=== PATIENT | female | born 1965 | race Caucasian/White ===

== ENCOUNTER 2024-10-31 23:10 | Inpatient (IN) | payer BC, SELFPAY ==
[2024-10-31 20:52] VITALS: BP 182/107
[2024-10-31 21:05] LABS: % Basophils 0.5 % (0-2); % Eosinophils 1.8 % (0-6); % Immature Granulocytes 0.4 % (0-0.5); % Lymphocytes 27.7 % (20.5-51.1); % Monocytes 6.2 % (1.7-9.3); % Neutrophils 63.4 % (42.2-75.2); Absolute Eosinophils 0.1 10^3/uL (0-0.7); Absolute Monocytes 0.5 10^3/uL (0.1-0.6); Absolute Neutrophils 4.6 10^3/uL (1.4-6.5); Hematocrit 40.2 % (37.0-47.0); Hemoglobin 12.9 g/dL (12.0-16.0); Mean Corp Hgb Conc. 32.1 g/dL (33.0-37.0); Mean Corpuscular Hgb 27.7 pg (27.0-31.0); Mean Corpuscular Volume 86.3 fL (81.0-99.0); Mean Platelet Volume 9.5 fL (7.4-10.4); Nucleated Red Blood Cells % 0 %; Platelet Count 313 10^3/uL (130-400); Red Blood Cell Count 4.66 10^6/uL (4.20-5.40); Red Cell Dist. Width 13.5 % (11.5-14.5); White Blood Cell Count 7.3 10^3/uL (4.8-10.8)
[2024-10-31 21:29] LABS: Blood Urea Nitrogen 25 mg/dl (7-17); Glucose 113 mg/dl (70-99)
[2024-10-31 21:30] LABS: ALT (SGPT) 79 U/L (0-35); AST (SGOT) 121 U/L (14-36); Albumin 4.6 g/dl (3.5-5.0); Alkaline Phosphatase 108 U/L (38-126); Calcium 9.8 mg/dl (8.4-10.2); Carbon Dioxide 29 mmol/L (22-30); Chloride 102 mmol/L (98-107); Potassium 4.1 mmol/L (3.5-5.1); Sodium 138 mmol/L (135-145); Total Bilirubin 0.6 mg/dl (0.2-1.3); Total Protein 7.3 g/dl (6.3-8.2); eGFR > 60.00
[2024-10-31 22:03] LABS: Lipase > 4000 U/L (23-300)
--- NOTE | 2024-10-31 22:15 | ED.GENMED ---
History of Present Illness
<Gayle Luke MD, Resident - Last Filed: 10/31/24 22:33>
General
Chief Complaint: Abdominal Symptoms
Time Seen by Provider: 10/31/24 21:56
History of Present Illness
History of Present Illness:
59-year-old female with no significant past medical history presenting to the ED with abdominal pain since yesterday. Patient notes she had sudden onset pain located in the epigastric region while shopping that lasted about 15-20 mins and subsided
on its own. No associated symptoms. Denies fever, nausea, vomiting. Today, after breakfast the pain started again in the same location and lasted about 15-20 mins without any other symptoms except for luis armando satiety. Tonight, after dinner, she had
pain that lasted about one hour and radiated to her back. Patient notes pain did not change with movement and position changes. Denies melena, urinary symptoms, change in BM, binge drinking. Patient notes has never had abdominal pain before.
Currently in mild pain (01/02). Last colonoscopy in 2014 showed diverticulosis.
Past History
<Gayle Luke MD, Resident - Last Filed: 10/31/24 22:33>
Past History
ED Past Medical History: None
ED Past Surgical History: None
Social History
Alcohol: Occasional
Review of Systems
<Gayle Luke MD, Resident - Last Filed: 10/31/24 22:33>
Review of Systems
Constitutional: Reports no symptoms
EENT: Reports no symptoms
Respiratory: Reports no symptoms
Cardiac: Reports no symptoms
ABD/GI: Reports abdominal pain
: Reports no symptoms
Musculoskeletal: Reports no symptoms
Skin: Reports no symptoms
Neurological: Reports no symptoms
Endocrine: Reports no symptoms
Hematologic/Lymphatic: Reports no symptoms
Psychiatric: Reports no symptoms
Phy Exam
<Gayle Luke MD, Resident - Last Filed: 10/31/24 22:33>
Physical Exam
Physical Exam:
GENERAL: Alert, in no apparent distress.
EYE: pupils equal and reactive
NECK: Supple, no significant adenopathy.
ENT: o/p clr, mmm.
CARDIAC: Regular rate and rhythm.
LUNGS: Clear breath sounds bilaterally, no acute respiratory distress, no wheezes/rales/rhonchi
ABDOMEN: Soft, mild epigastric tenderness, no r/g, no cvat.
NEUROLOGICAL: Alert and oriented, no focal neuro deficits
SKIN: Warm and dry, skin intact.
MUSCULOSKELETAL: No edema, well perfused.
PSYCH: Normal and appropriate interaction.
Course
<Gayle Luke MD, Resident - Last Filed: 10/31/24 22:33>
Orders/Labs/Results
Orders:
Orders
10/31/24 21:00
Complete Blood Count/With Diff Urgent
Comprehensive Metabolic Panel Urgent
Lipase Urgent
10/31/24 22:19
0.9% Sodium Chloride 1000 ml [Nss] 1,000 ml IV BOLUS
10/31/24 22:20
Electrocardiogram (*1) Urgent
Reason for Study: Abdominal Pain
EKG- Treatment ONCE
US Abdomen Complete/Upper Urgent
Comment:
Reason For Exam: pain
10/31/24 22:26
HYDROmorphone [Dilaudid] 0.5 mg IV NOW STA
Ondansetron Injectable [Zofran] 4 mg IV NOW STA
Abnormal Lab Results
10/31/24
21:00
MCHC 32.1 L g/dL
(33.0-37.0)
BUN 25 H mg/dl
(7-17)
Glucose 113 H mg/dl
(70-99)
AST 121 H U/L
(14-36)
ALT 79 H U/L
(0-35)
Lipase > 4000 H* U/L
(23-300)
10/31/24 21:00
10/31/24 21:00
Vital Signs
Initial and Last Documented VS:
Initial Vital Signs
Temp Pulse Resp BP Pulse Ox
98.1 F 91 18 182/107 99
10/31/24 20:52 10/31/24 20:52 10/31/24 20:52 10/31/24 20:52 10/31/24 20:52
Last Documented Vital Signs
Temp Pulse Resp BP Pulse Ox
98.1 F 91 18 182/107 99
10/31/24 20:52 10/31/24 20:52 10/31/24 20:52 10/31/24 20:52 10/31/24 20:52
<hSane Christensen, DO - Last Filed: 10/31/24 22:30>
Orders/Labs/Results
Orders:
Orders
10/31/24 21:00
Complete Blood Count/With Diff Urgent
Comprehensive Metabolic Panel Urgent
Lipase Urgent
10/31/24 22:19
0.9% Sodium Chloride 1000 ml [Nss] 1,000 ml IV BOLUS
10/31/24 22:20
Electrocardiogram (*1) Urgent
Reason for Study: Abdominal Pain
EKG- Treatment ONCE
US Abdomen Complete/Upper Urgent
Comment:
Reason For Exam: pain
10/31/24 22:26
HYDROmorphone [Dilaudid] 0.5 mg IV NOW STA
Ondansetron Injectable [Zofran] 4 mg IV NOW STA
Abnormal Lab Results
10/31/24
21:00
MCHC 32.1 L g/dL
(33.0-37.0)
BUN 25 H mg/dl
(7-17)
Glucose 113 H mg/dl
(70-99)
AST 121 H U/L
(14-36)
ALT 79 H U/L
(0-35)
Lipase > 4000 H* U/L
(23-300)
10/31/24 21:00
10/31/24 21:00
Vital Signs
Initial and Last Documented VS:
Initial Vital Signs
Temp Pulse Resp BP Pulse Ox
98.1 F 91 18 182/107 99
10/31/24 20:52 10/31/24 20:52 10/31/24 20:52 10/31/24 20:52 10/31/24 20:52
Last Documented Vital Signs
Temp Pulse Resp BP Pulse Ox
98.1 F 91 18 182/107 99
10/31/24 20:52 10/31/24 20:52 10/31/24 20:52 10/31/24 20:52 10/31/24 20:52
<Gayle Luke MD, Resident - Last Filed: 10/31/24 22:33>
MDM/Problems Addressed
Differential Diagnosis Includes:
Biliary colic
Cholelithiasis
Pancreatitis
Diverticulosis
ACS
MDM/Problems Addressed:
- CBC, CMP
- Abdomen US
- Pain management
- NPO
<Gayle Luke MD, Resident - Last Filed: 10/31/24 22:33>
*Critical Care Note
Total Time (30-74mins, 75-104mins- exclusive of procedures): Not Applicable
<Shane Christensen DO - Last Filed: 10/31/24 22:30>
Update Note
Update Note:
Update ER attending labs noted 2 episodes of abdominal pain into her back looks like pancreatitis social drinker not to excess none recently perhaps gallstone mediated n.p.o. IV fluids analgesics ultrasound admission
ED Attending Note
<Gayle Luke MD, Resident - Last Filed: 10/31/24 22:33>
-
Portions of this chart may have been created with voice recognition software.� Occasional wrong word or��sound alike� substitutions may have occurred due to the inherent limitations of voice recognition software.
<Shane Christensen DO - Last Filed: 10/31/24 22:30>
ED Attending Note
Patient seen and examined by attending physician: Yes
I performed a history and physical exam of patient and discussed management with resident, I reviewed resident's note and agree with documented findings and plan of care.: Yes
ED Attending Note:
Seen with resident agree with assessment plan 59-year-old female with 2 episodes of abdominal pain yesterday and then today fairly severe into her back some nausea without vomiting social drinker of alcohol very rarely no jaundice, she has had
laparoscopy with infertility treatments no other abdominal surgery, labs are noted keep n.p.o. analgesics, ultrasound admission
Discharge Plan
Interventions
Interventions:
*Risk Screen - Suicide Last Done: 10/31/24 20:52
*General Assessment Last Done: 10/31/24 20:52
*Neglect/Abuse Screening Last Done: 10/31/24 20:52
KM-Itrets-Frafpodbpv Assessment Last Done: 10/31/24 22:08
Discharge Date and Time
Print Language: NEPALI
[2024-10-31] MEDS: NSS 1000 IV (22:35)
[2024-10-31] MEDS: DILAUDID 0.5 MG IV (22:36)
[2024-10-31] MEDS: ZOFRAN 4 MG IV (22:36)
--- NOTE | 2024-10-31 22:40 | HPS.HSE ---
Family Physician
-
Family Physician:
Chief Complaint
-
epigastric abdominal pain
History of Present Illness
59-year-old female with no significant past medical history presenting to the ED with abdominal pain since yesterday. Patient notes she had sudden onset pain located in the epigastric region after eating food. it last for 20 mins and subsided on its
own. today after breakfast, she felt the again and subsided its own. after dinner, she felt the epigastric pain which lasted for one hour and it radiated to her back. denied nausea, vomiting and diarrhea. denied fever,chills, chest pain sob. denied
dysuria or hematuria. on Thursday, she felt some palpitation.
noted to have elevated LFT's, lipase. admitting for further management.
Medical History
Past Medical History
Past Medical History: Reports Other
Past Surgical History: Reports None
Social History
Tobacco: Non-smoker
Alcohol: Occasional
Drug: None
Personal:
Living: With Family
Family History
Family History: Not pertinent
Allergies / Home Medications
Allergies reflects when Allergies were last updated in [facility].
Home Medications with original date entered in [facility]
Allergy/Medication List:
Allergies
Allergy/AdvReac Type Severity Reaction Status Date / Time
No Known Allergies Allergy Unverified 10/31/24 20:56
Review of Systems
-
Constitutional: Reports No Symptoms
EENT: Reports No Symptoms
Respiratory: Reports No Symptoms
Cardiac: Reports No Symptoms
Abdomen/GI: Reports Abdominal Pain
: Reports No Symptoms
Musculoskeletal: Reports No Symptoms
Skin: Reports No Symptoms
Neurological: Reports No Symptoms
Endocrine: Reports No Symptoms
Hematologic/Lymphatic: Reports No Symptoms
Psych: Reports No Symptoms
Physical Exam
Vital Signs
Vital Signs
Temp Pulse Resp BP Pulse Ox
98.1 F 91 18 182/107 99
10/31/24 20:52 10/31/24 20:52 10/31/24 20:52 10/31/24 20:52 10/31/24 20:52
Physical Exam
General: Well Developed, Well Nourished and No Apparent Distress
HEENT: NormoCephalic, Moist mucous membranes and Atraumatic
Respiratory: Clear
Cardiac: S1/S2 and Regular Rhythm; No Murmur or Rub
GI: Soft, Non Tender, Non Distended and Normal Bowel Sounds; No Organomegaly
Rectal: Deferred by Provider
Musculoskeletal: No Clubbing, No Cyanosis and No Edema
Skin: No Rash
Neuro: AO x 3 and Nonfocal/grossly intact
Psych: Calm
Laboratory Results
-
10/31/24 21:00
10/31/24 21:00
Laboratory Results
Total Bilirubin 0.6 mg/dl (0.2-1.3) 10/31/24 21:00
AST 121 U/L (14-36) H 10/31/24 21:00
ALT 79 U/L (0-35) H 10/31/24 21:00
Alkaline Phosphatase 108 U/L (38-126) 10/31/24 21:00
Lipase > 4000 U/L (23-300) H* 10/31/24 21:00
Data Reviewed
-
Lab Data: Labs Reviewed by me
Impression/Plan
-
# Epigastric abdominal pain likely pancreatitis
-AST 121, ALT 79, lipase greater than 4000
-US of abdomen pending, if nonrevealing will obtain CT of abdomen
-fluids continued
-trend LFT's and Lipase in Am
-keep patient NPO
#DVT prophylaxis
-scd
#CODE status
-full code
[2024-10-31 22:42] VITALS: BP 163/71
[2024-10-31 23:00] VITALS: BP 153/72
--- NOTE | 2024-10-31 23:06 | W.PN.UPDATE ---
Update Note
Progress Note Update
Patient seen in conjunction with SHIRLEY. I agree with her findings on history and physical. I agree with the assessment and plan.
Briefly, this is a 59-year-old female with no known segment past medical history presenting to the emergency department with approximately 1 day history of epigastric pain. She reports sudden onset of epigastric pain 1 day ago with a sharp
abdominal sensation that had almost doubled over and associated with episode of diaphoresis and chills. She had no nausea or vomiting. This last for some time and then resolved after she took a nap. The following day she started having
intermittent chest pain with food. She had a sense of fullness and then pain that radiates to the back. She has denied any nausea or vomiting. She denies any fevers or chills. He has no diarrhea.
Patient seen in the ED she was afebrile hemodynamically stable with a blood pressure of 160/70 and satting normal on room air. ECG shows sinus tachycardia. CBC was unremarkable. Chemistries notable only for a lipase of 4000 and slight elevation
in AST and ALT.
Patient denies any alcohol use. She is not on any medication. She denies personal history of gallstones but reports father with gallstones status post cholecystectomy. She has had no prior surgeries.
Assessment and plan
Acute pancreatitis�giving history, risk factors and mild transaminitis suspect transient gallstones with gallstone pancreatitis.
- admit to med/surg
- RUQ u/s to eval gb for stones and biliary dilation, if positive will get mrcp and GI consultation
- trend lfts
- NPO for now except sips
- IV fluids, pain control and antiemetics
DVT PPX - lovenox sq
Code status- Full code
[2024-11-01] MEDS: NSS 1000 IV ×2 (00:28→05:32)
[2024-11-01 01:15] VITALS: BMI 25.0
[2024-11-01 01:18] VITALS: BP 139/73
--- NOTE | 2024-11-01 01:54 | PTCARENOTE ---
Received pt from er alert and oriented ambulated from stretcher to bed without difficulty,pts physical assessment preformed with ease,pt denies pain at this time,afebrile VS stable.IVF initiated at 200 mls hour.Pt sleeping after assessment.
[2024-11-01 07:38] VITALS: BP 114/60
[2024-11-01] MEDS: LR IV ×2 (07:56→14:03)
[2024-11-01] MEDS: PROTONIX IV 40 MG IV (07:58)
[2024-11-01] MEDS: NSS (PRESERVATIVE FREE) 10 ML IV (07:58)
[2024-11-01 08:25] LABS: Hematocrit 34.2 % (37.0-47.0); Hemoglobin 11.2 g/dL (12.0-16.0); Mean Corp Hgb Conc. 32.7 g/dL (33.0-37.0); Mean Corpuscular Hgb 28.6 pg (27.0-31.0); Mean Corpuscular Volume 87.2 fL (81.0-99.0); Mean Platelet Volume 10.4 fL (7.4-10.4); Platelet Count 260 10^3/uL (130-400); Red Blood Cell Count 3.92 10^6/uL (4.20-5.40); White Blood Cell Count 16.2 10^3/uL (4.8-10.8)
[2024-11-01 08:56] LABS: ALT (SGPT) 405 U/L (0-35); AST (SGOT) 479 U/L (14-36); Albumin 3.4 g/dl (3.5-5.0); Alkaline Phosphatase 179 U/L (38-126); Blood Urea Nitrogen 18 mg/dl (7-17); Calcium 8.5 mg/dl (8.4-10.2); Carbon Dioxide 23 mmol/L (22-30); Chloride 107 mmol/L (98-107); Estimated Creatinine Clearance 75 ml/min; Glucose 118 mg/dl (70-99); HDL Cholesterol 76 mg/dl; LDL Cholesterol, Calculated 95 mg/dl; Potassium 3.8 mmol/L (3.5-5.1); Sodium 138 mmol/L (135-145); Total Bilirubin 1.2 mg/dl (0.2-1.3); Total Cholesterol 177 mg/dl (50-199); Total Protein 5.5 g/dl (6.3-8.2); Triglyceride 34 mg/dl (10-149); Very Low Density Lipoprotein 6 mg/dl (0-30); eGFR > 60.00
--- NOTE | 2024-11-01 09:34 | CM ---
Addendum entered by Tari Lilly RN 11/01/24 09:35:
Correction:
Patient uses [facility] for medication services.
Original Note:
CM reviewed medical records. CM met with patient in room. Patient confirmed demographics. Patient lives independently. Patient denies history of VN, SNF or DME. Patient is active with her PCP. Patient uses [facility] for medication services.
PLAN: Home no needs.
[2024-11-01 10:13] LABS: Lipase > 4000 U/L (23-300)
--- NOTE | 2024-11-01 10:18 | W.PN.HOSP.TC ---
Today's Communication/Plan
-
monitor vitals
see plan
cw LR
pain control
check bcx
start empiric abx
NPO
GI to see
MRI
monitor LFT's
Assessment / Plan
Assessment / Plan
General: Well Developed, Well Nourished and No Apparent Distress
HEENT: NormoCephalic, Moist mucous membranes and Atraumatic
Respiratory: Clear
Cardiac: S1/S2 and Regular Rhythm; No Murmur or Rub
GI: Soft, Tender
Musculoskeletal: No Edema
Skin: No Rash
Neuro: AO x 3 and Nonfocal/grossly intact
Psych: Calm
Abdominal pain secondary to pancreatitis likely secondary to gallstones
Ultrasound suggestive of Nicky lithiasis however no evidence of acute cholecystitis. There is dilation of CBD. MRI pending
GI consulted
N.p.o.
Lactated Ringer's
Pain control
Now with leukocytosis and tachycardia, sepsis likely secondary to pancreatitis
Check blood culture, start empiric antibiotics
LFTs worse with elevated alk phos, concern for stone
DVT prophylaxis
-scd
#CODE status
-full code
I spent a total of 52 minutes with the patient or on the floor. More than 50% of this time involved counseling and coordination of care.
Anticipated Discharge: > 48 hours
Subjective/Interval History
-
Date of Service: November 01, 2024
has pain
Objective Data
-
Labs:
Laboratory Results
11/01/24
07:00
WBC 16.2 H
Hgb 11.2 L
Hct 34.2 L
Plt Count 260
Sodium 138
Potassium 3.8
Chloride 107
Carbon Dioxide 23
BUN 18 H
Creatinine 0.8
Glucose 118 H
Calcium 8.5
Total Bilirubin 1.2
AST 479 H
ALT 405 H
Alkaline Phosphatase 179 H
Vital Signs:
Vital Signs
Temp Pulse Resp BP Pulse Ox
99.4 F 102 17 114/60 95
11/01/24 07:38 11/01/24 07:38 11/01/24 07:38 11/01/24 07:38 11/01/24 07:38
[2024-11-01] MEDS: DILAUDID 0.5 MG IV ×2 (10:50→23:49)
[2024-11-01] MEDS: ROCEPHIN 1000 MG IV (12:09)
[2024-11-01] MEDS: LR 1000 IV ×2 (12:10→20:39)
[2024-11-01] MEDS: STERILE WATER FOR INJECTION 10 ML IV (12:10)
[2024-11-01] MEDS: FLAGYL 500 MG 100 IV ×2 (12:10→20:40)
--- NOTE | 2024-11-01 13:31 | CON.GI ---
Consultation
-
Date/Time Consultation Requested: 11/01/2024,05:21
Date/Time Consultation Performed: 11/01/2024,13:30
Requesting Provider: Kemar Lizarraga
Performing Provider: Claudia Vera
Reason for Consultation: Pancreatitis
Medical History
Chief Complaint / HPI
Chief Complaint: Abdominal pain
History of Present Illness:
Patient is a 59-year-old female with past medical history of arthritis for which she takes ewuz-lon-uucqkmi supplements and on occasions uses NSAIDs for pain relief. She was in her usual state of health 2 days ago when she had sudden onset of pain
in the epigastric region that felt like a punch in the abdomen, lasted for about 20 to 25 minutes and then resolved on its own. She felt all right but the next day she had another episode of pain and then after dinner she had severe pain in the
epigastric region radiating to the back and to the right upper quadrant, and was severe and sudden in onset but the patient did not have any vomiting with it.
She denies any chronic autoimmune conditions, smoking, steroid use, uohi-fkf-odiytqk supplement use, heavy alcohol use, and reports normal triglyceride levels by her PCP. She drinks alcohol occasionally.
She denies any recent weight gain or weight loss, chest pain, shortness of breath, palpitations, constipation, diarrhea, indigestion, difficulties with swallowing, insomnia or fever.
The workup done in the emergency and abdominal ultrasound that showed cholelithiasis without evidence of acute cholecystitis, common bile duct was 9.6 mm in diameter, a follow-up MRI with MRCP was done that showed mild peripancreatic edema
consistent with acute pancreatitis, the common bile duct was mildly dilated measuring 1 cm with distal tapering but there was no evidence of choledocholithiasis.
The patient is being managed with conservative measures including pain control, IV fluids, antibiotics, and she is n.p.o. at the moment. The patient reports pain that she is tolerating and is trying to avoid any pain medications.
Past Medical History
Past Medical History: Other (Arthritis)
Past Surgical History: None
Social History
Tobacco: Non-Smoker
Alcohol: Occasional
Drug: None
Personal:
Living: With Family
Family History
Family History: Reviewed & Not Pertinent
Allergies / Home Medications
Allergy/AdvReac Type Severity Reaction Status Date / Time
No Known Allergies Allergy Unverified 10/31/24 20:56
�Medication �Instructions �Recorded
No Meds [No Current Medications] 11/01/24
Review of Systems
-
All other systems: A 12 pt ROS was Negative except as stated above in HPI
Vital Signs
Temp Pulse Resp BP Pulse Ox
99.4 F 102 17 114/60 95
11/01/24 07:38 11/01/24 07:38 11/01/24 07:38 11/01/24 07:38 11/01/24 07:38
Physical Exam
Exam
General: Well Developed and Pain (Appears in mild distress due to pain)
HEENT: Anicteric and Moist Mucous Membranes
Respiratory: Clear and Other (No wheezes rhonchi or rails)
Cardiac: S1/S2 and Regular Rhythm
GI: Soft, Normal Bowel Sounds, Tender (Mildly tender) and Other
Genito-urinary: No Costovertebral Tender
Musculoskeletal: No Clubbing and No Edema
Skin: Warm
Neuro: Awake, Alert and No Motor Deficits
Psych: Calm
Results
WBC 16.2 10^3/uL (4.8-10.8) H 11/01/24 07:00
Hgb 11.2 g/dL (12.0-16.0) L 11/01/24 07:00
Hct 34.2 % (37.0-47.0) L 11/01/24 07:00
MCV 87.2 fL (81.0-99.0) 11/01/24 07:00
Plt Count 260 10^3/uL (130-400) 11/01/24 07:00
Absolute Neuts (auto) 4.6 10^3/uL (1.4-6.5) 10/31/24 21:00
Sodium 138 mmol/L (135-145) 11/01/24 07:00
Potassium 3.8 mmol/L (3.5-5.1) 11/01/24 07:00
Chloride 107 mmol/L (98-107) 11/01/24 07:00
Carbon Dioxide 23 mmol/L (22-30) 11/01/24 07:00
BUN 18 mg/dl (7-17) H 11/01/24 07:00
Creatinine 0.8 mg/dL (0.6-1.0) 11/01/24 07:00
Calcium 8.5 mg/dl (8.4-10.2) 11/01/24 07:00
Total Bilirubin 1.2 mg/dl (0.2-1.3) 11/01/24 07:00
AST 479 U/L (14-36) H 11/01/24 07:00
ALT 405 U/L (0-35) H 11/01/24 07:00
Alkaline Phosphatase 179 U/L (38-126) H 11/01/24 07:00
Lipase > 4000 U/L (23-300) H* 11/01/24 07:00
Diagnostic Image Results:
Abdominal ultrasound 10/31/2024
IMPRESSION:
Cholelithiasis. No secondary findings to suggest acute cholecystitis by ultrasound.
There is dilation of the common bile duct measuring up to 9.6 mm. No sonographic evidence for bile duct calculus. As warranted, further evaluation with MRI of the abdomen/MRCP could be considered.
MRCP 11/01/2024
IMPRESSION:
Mild peripancreatic edema consistent with known acute pancreatitis.
The common bile duct is mildly dilated measuring 1.0 cm with distal tapering. There is no evidence of choledocholithiasis. There is a 2.0 x 1.5 cm periampullary duodenal diverticulum extending posteriorly.
Cholelithiasis.
Prior GI Procedures:
EGD: none
Colonoscopy: 2015
Diverticulosis in sigmoid colon
Assessment / Plan
-
IMPRESSION
Patient is a 59-year-old female non-smoker, BMI normal, drinks occasionally, nondiabetic, evidence of cholelithiasis on abdominal ultrasound, MRCP shows mild common bile duct dilation with no evidence of choledocholithiasis.
Epigastric pain radiating to back and right upper quadrant
No vomiting or nausea,
Some dry heaves
ASSESSMENT/PLAN
Keep n.p.o. for now, allow ice chips, can progress to clear liquid diet if the patient feels like eating
Continue IV fluids for now
Appropriate pain management
No evidence of choledocholithiasis
Await surgical consult, for cholecystectomy
GI will continue to follow
#DVT prophylaxis
-scd
#CODE status
-full code
-
-
Thank you for consultation and allowing me to participate in the patient's care. Please call the plant protection guard GI physician during the after hours with any questions or concerns.
[2024-11-01 15:28] VITALS: BP 130/71
[2024-11-01] MEDS: TYLENOL 650 MG PO ×2 (15:51→20:44)
[2024-11-01 23:30] VITALS: BP 133/70
[2024-11-02] MEDS: LR 1000 IV ×3 (04:15→20:11)
[2024-11-02] MEDS: FLAGYL 500 MG 100 IV ×3 (04:16→20:12)
[2024-11-02] MEDS: DILAUDID 0.5 MG IV (04:23)
[2024-11-02] MEDS: COMPAZINE 5 MG IV (04:55)
[2024-11-02 06:33] LABS: % Basophils 0.3 % (0-2); % Eosinophils 1.1 % (0-6); % Immature Granulocytes 0.8 % (0-0.5); % Neutrophils 83.8 % (42.2-75.2); Absolute Eosinophils 0.1 10^3/uL (0-0.7); Absolute Immature Granulocytes 0.1 10^3/uL (0-0.05); Absolute Lymphocytes 0.7 10^3/uL (1.2-3.4); Absolute Monocytes 0.7 10^3/uL (0.1-0.6); Absolute Neutrophils 8.1 10^3/uL (1.4-6.5); Hematocrit 33.1 % (37.0-47.0); Hemoglobin 10.5 g/dL (12.0-16.0); Mean Corp Hgb Conc. 31.7 g/dL (33.0-37.0); Mean Corpuscular Hgb 27.9 pg (27.0-31.0); Mean Corpuscular Volume 87.8 fL (81.0-99.0); Nucleated Red Blood Cells % 0 %; Platelet Count 213 10^3/uL (130-400); Red Blood Cell Count 3.77 10^6/uL (4.20-5.40); Red Cell Dist. Width 13.9 % (11.5-14.5); White Blood Cell Count 9.7 10^3/uL (4.8-10.8)
[2024-11-02 07:05] LABS: ALT (SGPT) 271 U/L (0-35); AST (SGOT) 148 U/L (14-36); Albumin 3.2 g/dl (3.5-5.0); Alkaline Phosphatase 154 U/L (38-126); Blood Urea Nitrogen 13 mg/dl (7-17); Calcium 8.7 mg/dl (8.4-10.2); Carbon Dioxide 20 mmol/L (22-30); Chloride 106 mmol/L (98-107); Estimated Creatinine Clearance 86 ml/min; Glucose 65 mg/dl (70-99); Potassium 3.6 mmol/L (3.5-5.1); Sodium 137 mmol/L (135-145); Total Bilirubin 0.9 mg/dl (0.2-1.3); Total Protein 5.3 g/dl (6.3-8.2); eGFR > 60.00
[2024-11-02 07:19] LABS: Lipase > 4000 U/L (23-300)
[2024-11-02 07:48] VITALS: BP 133/67
[2024-11-02] MEDS: PROTONIX IV 40 MG IV (08:42)
[2024-11-02] MEDS: NSS (PRESERVATIVE FREE) 10 ML IV (08:42)
[2024-11-02 09:06] LABS: Glucose - Point of Care 63 mg/dl (70-99)
[2024-11-02] MEDS: DEXTROSE 50% SYRINGE 12.5 GRAMS IV ×2 (09:21→12:13)
[2024-11-02 09:53] LABS: Glucose - Point of Care 110 mg/dl (70-99)
--- NOTE | 2024-11-02 10:18 | W.PN.HOSP.TC ---
Today's Communication/Plan
-
Monitor vital signs
see plan
Blood culture positive for E. coli, ID consulted
Continue with antibiotics
Check UA
GI to see today
Monitor LFTs
Assessment / Plan
Assessment / Plan
General: Well Developed, Well Nourished and No Apparent Distress
HEENT: NormoCephalic, Moist mucous membranes and Atraumatic
Respiratory: Clear
Cardiac: S1/S2 and Regular Rhythm; No Murmur or Rub
GI: Soft, Tender
Musculoskeletal: No Edema
Skin: No Rash
Neuro: AO x 3 and Nonfocal/grossly intact
Psych: Calm
Abdominal pain secondary to pancreatitis likely secondary to gallstones
Ultrasound suggestive of Nicky lithiasis however no evidence of acute cholecystitis. There is dilation of CBD. MRI With acute pancreatitis. CBD is mildly dilated. No evidence of choledocholithiasis. Periampullary duodenal diverticulum extending
posteriorly.
GI following
N.p.o. for now
Lactated Ringer's
Pain control
Now with leukocytosis and tachycardia, sepsis likely secondary to pancreatitis due to biliary source
bcx + gram - bacilli. ID consulted. follow fever curve. check Ua
cw empiric abx
LFTs slowly improving
Once pancreatitis is improving still may need surgery evaluation for eventual CCY
Hypoglycemia
Monitor, Accu-Cheks. Dextrose.
DVT prophylaxis
-scd
#CODE status
-full code
I spent a total of 51 minutes with the patient or on the floor. More than 50% of this time involved counseling and coordination of care.
Anticipated Discharge: > 48 hours
Subjective/Interval History
-
Date of Service: November 02, 2024
denies nausea
Objective Data
-
Labs:
Laboratory Results
11/02/24
06:10
WBC 9.7
Hgb 10.5 L
Hct 33.1 L
Plt Count 213
Sodium 137
Potassium 3.6
Chloride 106
Carbon Dioxide 20 L
BUN 13
Creatinine 0.7
Glucose 65 L
Calcium 8.7
Total Bilirubin 0.9
AST 148 H
ALT 271 H
Alkaline Phosphatase 154 H
Vital Signs:
Vital Signs
Temp Pulse Resp BP Pulse Ox
98.2 F 78 17 133/67 95
11/02/24 07:48 11/02/24 07:48 11/02/24 07:48 11/02/24 07:48 11/02/24 07:48
I&O
11/01/24 11/02/24 11/03/24
06:59 06:59 06:59
Intake Total 1482 / 1482
Balance 1482 / 1482
--- NOTE | 2024-11-02 10:23 | CM ---
Patient seen at bedside. Patient anticipates possible discharge but does not feel that she will have any discharge needs. Patient also arrived for support. CM will continue to follow for discharge planning needs.
Plan; home with no needs anticipated
[2024-11-02] MEDS: LR IV ×2 (10:30→16:41)
[2024-11-02 11:11] LABS: Urine Albumin Negative (Neg - Trace); Urine Bilirubin Negative (Negative); Urine Character Clear (Clear); Urine Color Yellow; Urine Glucose 1+ (Negative); Urine Ketone 3+ (Negative); Urine Leukocyte Negative (Negative); Urine Nitrite Negative (Negative); Urine Occult Blood Trace (Negative); Urine Urobilinogen Negative (Neg - 1+)
[2024-11-02 11:37] LABS: Urine Mucus Few
[2024-11-02 11:47] LABS: Urine Granular Cast 0-2 /LPF (0)
[2024-11-02 11:48] LABS: Urine Waxy Cast 0-2 /LPF
[2024-11-02 11:49] LABS: Urine Bacteria Few (Negative); Urine Red Blood Cell 0-2 /HPF (0-2)
[2024-11-02 12:12] LABS: Glucose - Point of Care 63 mg/dl (70-99)
[2024-11-02] MEDS: STERILE WATER FOR INJECTION 10 ML IV (12:18)
[2024-11-02] MEDS: ROCEPHIN 1000 MG IV (12:18)
[2024-11-02] MEDS: TYLENOL 650 MG PO ×2 (12:35→21:23)
[2024-11-02 12:44] LABS: Glucose - Point of Care 96 mg/dl (70-99)
--- NOTE | 2024-11-02 13:05 | W.PN.GI.CBS2 ---
Today's Communication / Plan
-
Continue antibiotics
follow repeat BC
ID consult
IVF, clears, pain control
Assessment / Plan
-
acute gallstone pancreatitis with E. coli bacteremia from blood cultures 11/01
MRCP with no obvious CBD stone but does have dilated duct and abnormal LFTs, no fluid collection or abscess or necrosis noted
Likely had transient bacteremia from cholangitis and most probably passed stone
Agree with ID consult for antibiotic of choice and duration of treatment
if her LFTs start rising again will need EUS to rule out CBD stone and ERCP if confirmed to remove the stone.
Continue supportive care with lactated Ringer's. pain control. Zofran and PPI
will start her on clear liquids.
incentive spirometry
No history of EtOH and triglyceride levels are normal trend LFTs and lipase.
Surgery consult for eventual CCY hopefully this admission once pain and pancreatitis is improved.
Subjective
Subjective
Date of Service: November 02, 2024
Pain is improving she does complain of overall myalgia and fatigue, leukocytosis is improving, afebrile today morning, blood cultures from yesterday are positive for E. coli, LFTs are trending down
Objective
Data Reviewed
Laboratory Data:
Laboratory Results
11/02/24 06:10
11/02/24 06:10
Laboratory Results
Total Bilirubin 0.9 mg/dl (0.2-1.3) 11/02/24 06:10
AST 148 U/L (14-36) H 11/02/24 06:10
ALT 271 U/L (0-35) H 11/02/24 06:10
Alkaline Phosphatase 154 U/L (38-126) H 11/02/24 06:10
Lipase > 4000 U/L (23-300) H* 11/02/24 06:10
Vital Signs and I&O:
Vital Signs
Temp Pulse Resp BP Pulse Ox
98.2 F 78 17 133/67 95
11/02/24 07:48 11/02/24 07:48 11/02/24 07:48 11/02/24 07:48 11/02/24 07:48
I&O
11/01/24 11/02/24 11/03/24
06:59 06:59 06:59
Intake Total 1482 / 1482 110 / 110
Balance 1482 / 1482 110 / 110
Physical Exam
Physical Exam
Cardiology: Normal Sinus Rhythm
Pulmonary: Clear
GI: Soft, Non Distended, Tender (Mild epigastric tenderness) and Normal Bowel Sounds
[2024-11-02 14:40] VITALS: BP 152/83
--- NOTE | 2024-11-02 16:00 | CON.ID ---
Consultation
-
Date/Time Consultation Requested: 11/02/2024 0915
Date/Time Consultation Performed: 11/02/2024 1241
Requesting Provider: Dr. Davila
Performing Provider: Dr. Granados
Reason for Consultation: Bacteremia
Chief Complaint / Past History
History of Present Illness
Candace Rodriguez is a 59-year-old female without significant past medical history being evaluated at the request of Dr. Davila in regards to pancreatitis and bacteremia. History is obtained from chart review, along with patient interview.
The patient reports that approximately 1 day prior to admission she developed epigastric discomfort following eating. She reports that the discomfort lasted approximately 25 minutes and felt like a 'gut punch'. She reports feeling some sweats and
during that period of time. The discomfort improved, but the next day she developed similar discomfort, along with fever. Ultimately, she presented to the emergency room for further care, where imaging revealed cholelithiasis, and lipase was noted
to be greater than 4000. Yesterday she developed a leukocytosis, along with fever. She has been started on empiric antibiotics. Blood cultures obtained yesterday are now positive for E. coli, and Infectious Diseases is asked to comment upon
further antimicrobial management.
At this time she notes improvement in abdominal discomfort. She has not had any further fevers. She has no prior history of similar episodes. There are no known sick contacts.
Past History
Past Medical History: None
Past Surgical History: None
Allergy History:
No Known Allergies Allergy (Unverified 10/31/24 20:56)
Medications Reviewed: Yes
Current Antibiotics:
Rocephin 1 g IV every 24 hours
Metronidazole
Social History
Tobacco: Non-Smoker
Alcohol: None
Drug: None
Personal:
Living: With Family
Employment: Not Employed
Family History
Family History: Not Pertinent
Review of Systems
Vital Signs
Temp Pulse Resp BP Pulse Ox
98.5 F 82 16 152/83 98
11/02/24 14:40 11/02/24 14:40 11/02/24 14:40 11/02/24 14:40 11/02/24 14:40
Physical Exam
Physical Exam
Constitutional: No Acute Distress, Comfortable and Non-toxic
Eyes: No Conjunctival Hemorrhage and Sclera Anicteric
Oral: No Thrush and No Ulcers
Cardiovascular: S1/S2; Negative S3/S4
Pulmonary: Clear; Negative Wheezes, Rales or Rhonchi
Gastrointestinal: Soft, Tender, Non Distended, Normal Bowel Sounds, No Rebound and No Guarding
Skin: Warm and Dry; Negative Rash or Jaundice
Neurological: Awake and Alert
Psychological: Calm
Lab / Diagnostic Study Results
11/02/24 06:10
11/02/24 06:10
Abs Immat Gran (auto) 0.1 10^3/uL (0-0.05) H 11/02/24 06:10
Absolute Neuts (auto) 8.1 10^3/uL (1.4-6.5) H 11/02/24 06:10
Absolute Lymphs (auto) 0.7 10^3/uL (1.2-3.4) L 11/02/24 06:10
Absolute Monos (auto) 0.7 10^3/uL (0.1-0.6) H 11/02/24 06:10
Absolute Basos (auto) 0.0 10^3/uL (0-0.2) 11/02/24 06:10
Immature Gran % 0.8 % (0-0.5) H 11/02/24 06:10
Neutrophils % 83.8 % (42.2-75.2) H 11/02/24 06:10
Lymphocytes % 7.0 % (20.5-51.1) L 11/02/24 06:10
Monocytes % 7.0 % (1.7-9.3) 11/02/24 06:10
Eosinophils % 1.1 % (0-6) 11/02/24 06:10
Basophils % 0.3 % (0-2) 11/02/24 06:10
Ur Squamous Epith Cells 3-5 /LPF (Few) 11/02/24 10:50
Microbiology Results
Micro:
11/01/24 11:53 Blood Culture - Preliminary
Blood/Venous No Growth in 24 hours- Final report to follow
11/01/24 11:16 Blood Culture - Preliminary
Blood/Venous Escherichia coli
Gram Stain - Preliminary
Imaging:
11/01/2024 MRCP: Mild peripancreatic edema consistent with known acute pancreatitis. The common bile duct is mildly dilated measuring 1.0 cm with distal tapering. There is no evidence of choledocholithiasis. There is a 2.0 x 1.5 cm periampullary
duodenal diverticulum extending posteriorly. Cholelithiasis.
10/31/2024 Abdominal ultrasound: Cholelithiasis noted. No secondary findings to suggest acute cholecystitis by ultrasound. There is dilation of the common bile duct, measuring up to 9.6 mm. No sonographic evidence for bile duct calculus. Further
evaluation with MRI or MRCP may be considered.
Assessment / Plan
Acute pancreatitis
Cholelithiasis
E. coli bacteremia
Leukocytosis; improved
Fever
Recommendations:
Continue with ceftriaxone and metronidazole for the present while further culture data is pending.
Monitor white count and temperature curve.
Await full culture susceptibilities to guide further antimicrobial selection/de-escalation.
Await further workup by Gastroenterology, including procedures or imaging.
--- NOTE | 2024-11-02 16:08 | CON.GS ---
Consultation
-
Requesting Provider: Giovanni
Performing Provider: Cr
Reason for Consultation: Biliary pancreatitis
Medical History
-
Chief Complaint: Abd pain
History of Present Illness:
59F with acute onset abd pain that began 3 days ago while at the store. The pain was in her upper abd with radiation to her back and lasted about 30 mins. The following day she had 2 more similar episodes after eating dinner that lasted longer
prompting ED presentation. She denies fever but endorses chills, denies n/v. Never had similar episodes in the past.
Past Medical History
Past Medical History: Other (arthritis)
Past Surgical History: Gynecological (laparoscopic procedure)
Social History
Tobacco: Non-Smoker
Alcohol: Occasional
Drug: None
Personal:
Living: With Family
Family History
Family History: Reviewed & Noncontributory
Allergies / Home Medications
Allergy/AdvReac Type Severity Reaction Status Date / Time
No Known Allergies Allergy Unverified 10/31/24 20:56
�Medication �Instructions �Recorded �Confirmed �Type
No Meds [No Current Medications] 11/01/24 11/01/24 History
Review of Systems
-
A 10 point review of systems was completed, and was negative except as per HPI.
Physical Exam
Vital Signs
Temp Pulse Resp BP Pulse Ox
98.5 F 82 16 152/83 98
11/02/24 14:40 11/02/24 14:40 11/02/24 14:40 11/02/24 14:40 11/02/24 14:40
11/01/24 11/02/24 11/03/24
06:59 06:59 06:59
Actual Weight 74.474 kg
Body Mass Index (BMI) 25.0
Lab Results
11/02/24 06:10
11/02/24 06:10
WBC 9.7 10^3/uL (4.8-10.8) 11/02/24 06:10
Hgb 10.5 g/dL (12.0-16.0) L 11/02/24 06:10
Hct 33.1 % (37.0-47.0) L 11/02/24 06:10
Plt Count 213 10^3/uL (130-400) 11/02/24 06:10
Abs Immat Gran (auto) 0.1 10^3/uL (0-0.05) H 11/02/24 06:10
Neutrophils % 83.8 % (42.2-75.2) H 11/02/24 06:10
Physical Exam
General: Well Developed, Well Nourished and No Apparent Distress
HEENT: Normocephalic and Anicteric
GI: Soft, Non Distended and Tender (moderate ttp to epigastrium)
Skin: Warm and Dry
Neuro: AO x 3
Psych: Calm
Data Reviewed
-
Ultrasound: Image Personally Visualized and interpreted, Report Reviewed by me, Discussed with Physician, Discussed with Patient and Discussed with Family
MRI: Image Personally Visualized and interpreted, Report Reviewed by me, Discussed with Physician, Discussed with Patient and Discussed with Family
Labs: Labs Reviewed by me, Discussed with Physician, Discussed with Patient and Discussed with Family
Assessment / Plan
-
59F with biliary pancreatitis
100.7F Tmax, otherwise VSS, remains tender to palp on exam
Lipase >4000, LFTs trending down
Leukocytosis resolved
US with stones without stigmata of ACC
MRI without choledocholithiasis
Plan:
OK for CLD, NPO @ [facility] in case ready for OR tomorrow
PRN pain meds/anti-emetics
DVT ppx
Serial abd exams
Ambulate
D/w at bedside. Addressed prophylactic rationale for CCY once pancreatic inflammation cools down. All questions answered.
[2024-11-02 16:40] LABS: Glucose - Point of Care 91 mg/dl (70-99)
[2024-11-02 23:42] VITALS: BP 134/65
[2024-11-03] VITALS (9 sets, daily range): BP systolic 112–144; BP diastolic 57–83
[2024-11-03] MEDS: FLAGYL 500 MG 100 IV ×3 (04:09→20:20)
[2024-11-03] MEDS: LR 1000 IV (04:09)
[2024-11-03 05:43] LABS: Glucose - Point of Care 86 mg/dl (70-99)
[2024-11-03 07:36] LABS: % Basophils 0.4 % (0-2); % Immature Granulocytes 0.6 % (0-0.5); % Lymphocytes 16.7 % (20.5-51.1); % Monocytes 8.2 % (1.7-9.3); % Neutrophils 71.1 % (42.2-75.2); Absolute Eosinophils 0.2 10^3/uL (0-0.7); Absolute Lymphocytes 1.1 10^3/uL (1.2-3.4); Absolute Monocytes 0.6 10^3/uL (0.1-0.6); Absolute Neutrophils 4.8 10^3/uL (1.4-6.5); Hematocrit 33.7 % (37.0-47.0); Mean Corp Hgb Conc. 32.6 g/dL (33.0-37.0); Mean Corpuscular Hgb 28.1 pg (27.0-31.0); Mean Corpuscular Volume 86.2 fL (81.0-99.0); Mean Platelet Volume 10.2 fL (7.4-10.4); Nucleated Red Blood Cells % 0 %; Platelet Count 234 10^3/uL (130-400); Red Blood Cell Count 3.91 10^6/uL (4.20-5.40); Red Cell Dist. Width 13.8 % (11.5-14.5); White Blood Cell Count 6.7 10^3/uL (4.8-10.8)
[2024-11-03 08:06] LABS: ALT (SGPT) 192 U/L (0-35); AST (SGOT) 61 U/L (14-36); Albumin 3.5 g/dl (3.5-5.0); Alkaline Phosphatase 142 U/L (38-126); Blood Urea Nitrogen 6 mg/dl (7-17); Carbon Dioxide 26 mmol/L (22-30); Chloride 107 mmol/L (98-107); Estimated Creatinine Clearance 101 ml/min; Glucose 89 mg/dl (70-99); Potassium 3.7 mmol/L (3.5-5.1); Sodium 141 mmol/L (135-145); Total Bilirubin 0.4 mg/dl (0.2-1.3); Total Protein 5.9 g/dl (6.3-8.2); eGFR > 60.00
--- NOTE | 2024-11-03 08:14 | W.PN.HOSP.TC ---
Today's Communication/Plan
-
continue IV abx, continue IVF
lap giselle this afternoon
Assessment / Plan
Assessment / Plan
General: Well Developed, Well Nourished and No Apparent Distress
HEENT: NormoCephalic, Moist mucous membranes and Atraumatic
Respiratory: Clear
Cardiac: S1/S2 and Regular Rhythm; No Murmur or Rub
GI: Soft, non-tender, slightly distended
Musculoskeletal: No Edema
Skin: No Rash
Neuro: AO x 3 and Nonfocal/grossly intact
Psych: Calm
Abdominal pain secondary to pancreatitis likely secondary to gallstones
Ultrasound suggestive of Cholelithiasis however no evidence of acute cholecystitis. There is dilation of CBD. MRI With acute pancreatitis. CBD is mildly dilated. No evidence of choledocholithiasis. Periampullary duodenal diverticulum extending
posteriorly.
GI and GS following
NPO, continue IVF
continue pain control
Continue Rocephin/Flagyl for E. Coli bacteremia. ID following. leukocytosis and tachycardia, sepsis likely secondary to pancreatitis due to biliary source
LFTS improving; ok for OR today for lap giselle.
Hypoglycemia
Monitor, Accu-Cheks. Dextrose.
DVT ppx: SCDs
Code: Full
Anticipated Discharge: 24 - 48 hours
Subjective/Interval History
-
Date of Service: November 03, 2024
reports + flatus, BM
abd pain improving, less distended
for CCY later today
Objective Data
-
Labs:
Laboratory Results
11/03/24
07:03
WBC 6.7
Hgb 11.0 L
Hct 33.7 L
Plt Count 234
Sodium 141
Potassium 3.7
Chloride 107
Carbon Dioxide 26
BUN 6 L
Creatinine 0.6
Glucose 89
Calcium 9.0
Total Bilirubin 0.4
AST 61 H
ALT 192 H
Alkaline Phosphatase 142 H
Vital Signs:
Vital Signs
Temp Pulse Resp BP Pulse Ox
97.9 F 77 12 143/79 96
11/03/24 07:00 11/03/24 07:00 11/03/24 07:00 11/03/24 07:00 11/03/24 07:00
I&O
11/02/24 11/03/24 11/04/24
06:59 06:59 06:59
Intake Total 1482 / 1482 4730 / 4730
Balance 1482 / 1482 4730 / 4730
Data Reviewed
-
Total Time Spent with Patient (in minutes): 44
Labs: Labs Reviewed by me
[2024-11-03 08:20] LABS: Lipase 2155 U/L (23-300)
[2024-11-03] MEDS: NSS (PRESERVATIVE FREE) 10 ML IV (08:28)
[2024-11-03] MEDS: PROTONIX IV 40 MG IV (08:28)
--- NOTE | 2024-11-03 08:40 | W.PN.GS2 ---
Today's Communication / Plan
-
`
Assessment / Plan
-
Assessment: 59-year-old female with acute pancreatitis -gallstone mediated
AFVSS, clinically improving, lipase down to the 1999's now
MRCP negative for choledocholithiasis
Reviewed with patient indications for cholecystectomy. Patient in agreement to proceed with surgery. Laparoscopic cholecystectomy with intraoperative cholangiogram was reviewed in detail with patient including the operative technique, alternative
treatment options, benefits and risk such as but not limited to bleeding, infectious and wound related complications, iatrogenic injury to surrounding viscera, bile leak, postcholecystectomy fatty food intolerance. Any of the patient's concerns or
questions were fully addressed and informed consent was obtained.
Plan: Patient on OR schedule today for lap giselle with IOC
Subjective Data
-
Date of Service: November 03, 2024
Patient seen and examined.
Mild discomfort, no significant pain. No nausea. Appetite still suppressed. No vomiting
Passing flatus and has had multiple bowel movements
Objective Data
-
Intake and Output
11/02/24 11/03/24 11/04/24
06:59 06:59 06:59
Intake Total 1482 / 1482 4730 / 4730
Balance 1482 / 1482 4730 / 4730
Intake:
Oral fluids 0 / 0 1020 / 1020
IV fluids (Total) 1372 / 1372 3400 / 3400
IV piggybacks 110 / 110 310 / 310
Other:
Number of approximated MODERATE 2 3
amounts of urine
Vital Signs
Temp Pulse Resp BP Pulse Ox
97.9 F 77 12 143/79 96
11/03/24 07:00 11/03/24 07:00 11/03/24 07:00 11/03/24 07:00 11/03/24 07:00
Lab Results
11/03/24 07:03
11/03/24 07:03
Calcium 9.0 mg/dl (8.4-10.2) 11/03/24 07:03
Total Bilirubin 0.4 mg/dl (0.2-1.3) 11/03/24 07:03
AST 61 U/L (14-36) H 11/03/24 07:03
ALT 192 U/L (0-35) H 11/03/24 07:03
Alkaline Phosphatase 142 U/L (38-126) H 11/03/24 07:03
Total Protein 5.9 g/dl (6.3-8.2) L 11/03/24 07:03
Albumin 3.5 g/dl (3.5-5.0) 11/03/24 07:03
Physical Exam
-
NAD AAOx3
ABD: Soft, nondistended, mild tenderness palpation epigastrium. No rebound, no rigidity, no guarding
[2024-11-03] MEDS: TYLENOL 650 MG PO (10:19)
[2024-11-03] MEDS: STERILE WATER FOR INJECTION 10 ML IV (12:52)
[2024-11-03] MEDS: ROCEPHIN 1000 MG IV (12:52)
[2024-11-03 13:00] LABS: Glucose - Point of Care 88 mg/dl (70-99)
--- NOTE | 2024-11-03 13:23 | W.PN.GI.CBS2 ---
Today's Communication / Plan
-
for CCY today per surgery
decrease IVF rate
Assessment / Plan
-
acute gallstone pancreatitis with E. coli bacteremia from blood cultures 11/01
MRCP with no obvious CBD stone but does have dilated duct and abnormal LFTs, no fluid collection or abscess or necrosis noted
Likely had transient bacteremia from cholangitis and most probably passed stone
noted input from ID
Continue supportive care with lactated Ringer's will decrease rate. pain control. Zofran and PPI
tolerated clears last night
incentive spirometry
No history of EtOH and triglyceride levels are normal trend LFTs and lipase.
Surgery input noted scheduled for cholecystectomy today since her symptoms have markedly improved from the pancreatitis
Subjective
Subjective
Date of Service: November 03, 2024
Pain is markedly improved and LFTs are trending down, continues on antibiotics for E. coli bacteremia and is scheduled for cholecystectomy per surgery today
Left upper extremity Dopplers showed cephalic vein thrombus
Objective
Data Reviewed
Laboratory Data:
Laboratory Results
11/03/24 07:03
11/03/24 07:03
Laboratory Results
Total Bilirubin 0.4 mg/dl (0.2-1.3) 11/03/24 07:03
AST 61 U/L (14-36) H 11/03/24 07:03
ALT 192 U/L (0-35) H 11/03/24 07:03
Alkaline Phosphatase 142 U/L (38-126) H 11/03/24 07:03
Lipase 2155 U/L (23-300) H* 11/03/24 07:03
Vital Signs and I&O:
Vital Signs
Temp Pulse Resp BP Pulse Ox
97.9 F 77 12 143/79 96
11/03/24 07:00 11/03/24 07:00 11/03/24 07:00 11/03/24 07:00 12/12/24 07:00
I&O
11/02/24 11/03/24 11/04/24
06:59 06:59 06:59
Intake Total 1482 / 1482 4730 / 4730
Balance 1482 / 1482 4730 / 4730
Physical Exam
Physical Exam
Cardiology: Normal Sinus Rhythm
Pulmonary: Clear
GI: Soft, Non Distended, Tender (Mild epigastric tenderness much improved from yesterday) and Normal Bowel Sounds
--- NOTE | 2024-11-03 13:32 | W.SUR.PREOP ---
Pre-Operative Surgical Note
-
I have examined this patient prior to the performance of the scheduled procedure.
The patient's condition is unchanged from the time of the current History and
Physical and the patient is able to undergo the scheduled procedure.
[2024-11-03] MEDS: LR IV (13:40)
--- NOTE | 2024-11-03 13:40 | PTCARENOTE ---
Report given to [employer]. Patient received ordered IV ABX.
--- NOTE | 2024-11-03 15:33 | W.IMMPOSTOP ---
Surgical Immed Post Op Note
-
Primary Surgeon: Justa
Assisting Surgeon: Serafin NG
Pre-op Diagnosis: Acute gallstone pancreatitis, cholelithiasis, E. coli bacteremia
Post-op Diagnosis: Acute gallstone pancreatitis, cholelithiasis, E. coli bacteremia
Procedure Performed: Laparoscopic cholecystectomy with intraoperative cholangiogram
Anesthesia Type: GETA +0.25% Marcaine
Specimen / Cultures: Gallbladder/none
Estimated Blood Loss: 6 mL
Complications: None immediate
Operative Findings: Distended gallbladder with stones. Dilated cystic and common bile duct. Intraoperative cholangiogram normal. Cystic duct controlled with 3 clips proximally 1 clip the cystic infundibular junction. Anterior cystic artery with
prominent posterior cystic artery identified as well. Each individually controlled with hemoclips. Gallbladder removed off the liver bed attachments intact and extracted at epigastric port site. No additional incidental findings.
Plan: Routine postop supportive care
Clear liquids and advance diet as tolerated
Patient's was updated postoperatively in the surgical waiting area.
--- NOTE | 2024-11-03 15:36 | OR.RPT ---
Operative Report
Operative Report
Date of operative procedure: 11/03/2024
Primary Surgeon: Alex Marr MD
Registered Nurse Maternal Child: HERNANDEZ Liang
Pre-op Diagnosis: Acute gallstone pancreatitis, cholelithiasis, E. coli bacteremia
Post-op Diagnosis: Acute gallstone pancreatitis, cholelithiasis, E. coli bacteremia
Procedure Performed: Laparoscopic cholecystectomy with intraoperative cholangiogram
Anesthesia: GETA +0.25% Marcaine
Specimen / Cultures: Gallbladder/none
Estimated Blood Loss: 6 mL
Complications: None immediate
Indications for Operative Procedure: Patient is a 59 - year-old female seen in surgical consultation after work and evaluation for the acute onset of epigastric abdominal pain identified acute pancreatitis. Workup confirmed gallstones,
leukocytosis, elevated LFTs and a dilated common bile duct. Subsequent MRCP was negative for choledocholithiasis but confirmed cholelithiasis and showed mild peripancreatic inflammation without fluid collection or signs of severe pancreatitis. She
has had subjective and objective improvement in her acute pancreatitis. I discussed with the patient and subsequently her indications for laparoscopic cholecystectomy for definitive management of her gallstone mediated complication. The
patient was in agreement to proceed with surgery. The anticipated surgical procedure was reviewed in detail with the patient preoperatively obtaining informed consent. Please see progress note for details regarding our discussion and the
consenting process.
Brief Summary of Operative Findings: Distended gallbladder with stones. Dilated cystic and common bile duct. Intraoperative cholangiogram normal. Cystic duct controlled with 3 clips proximally, 1 clip at the cystic infundibular junction.
Anterior cystic artery with prominent posterior cystic artery identified as well. Each individually controlled with hemoclips. Gallbladder removed off the liver bed attachments intact and extracted at epigastric port site. No additional
incidental findings.
Operation in Detail: The patient was identified in the preoperative holding area. I confirmed the anticipated surgical procedure with the patient and her at bedside preoperatively. She was interviewed by the anesthesia and nursing staff
then brought back to the operating room. The patient was placed on the operating table in supine position. The bilateral upper extremities were carefully placed on padded arm boards and secured. Pneumatic compression boots were on the bilateral
lower extremities. Following induction of general endotracheal anesthesia the patient was kept on already preoperatively administered dosage and schedule of ceftriaxone/Flagyl. The patient's anterior abdominal wall was now widely and sterilely
prepped with ChloraPrep and then draped in the usual manner. The surgical time out was completed and the procedure was confirmed.
I initially proceeded with Veress needle insufflation at the left subcostal midclavicular line location. Once insufflated to 12 mmHg pressure then a supraumbilical 5 mm trocar was placed with optical viewing entry. The laparoscope was inserted.
There was no evidence of iatrogenic injury from access and the Veress needle was withdrawn. An epigastric 12 mm trocar was placed followed by 2 right sided lateral 5 mm trocars all under direct visualization. The patient was now transition into
reverse Trendelenburg and right side up to aid in exposure of the right upper quadrant.
The gallbladder was identified in its usual anatomic location. The fundic region was grasped and retracted anteriorly. There were a few filmy adhesions around the region of the gallbladder and liver capsule which were released with monopolar
cautery. The gallbladder was now further retracted anteriorly and cranially to expose it all the way down to the infundibulum. The infundibular area was now grasped and manipulated to expose the peritoneal attachments around the region of the
triangle of Calot. The peritoneum was carefully and superficially opened with hook on the cautery device both postero-laterally and williams-medially. The gallbladder was readily elevated off the cystic plate of the liver bed identifying the main
cystic artery anteriorly followed by an expectedly modestly dilated cystic duct. The lateral posterior dissection continued and a posterior cystic artery branch was identified as well. The connective tissue/fatty tissue attachments in the triangle
were completely freed until the cystic artery and its branches and the cystic duct were fully exposed with both an anterior and wide posterior critical view of safety. I first applied 2 clips proximally on the cystic artery and 1 clip distally and
divided it. Next a clip was placed at the cystic infundibular junction. A ductotomy was created just proximal to the clip on the cystic duct. A 5 Kiswahili cholangiocatheter was then inserted and secured with the Childers clamp.
Utilizing full-strength Optiray contrast cholangiography was performed. There was prompt opacification of the cystic duct and common bile duct. Common bile duct emptied into the duodenum with smooth distal tapering of the ampulla. There was some
retrograde filling into the pancreatic duct. There was retrograde filling into the common hepatic and subsequent intrahepatic biliary tree. There were no filling defects, strictures or other abnormalities noted and the biliary anatomy was
confirmed. Cholangiogram was therefore interpreted as being normal.
The cholangiocatheter was removed. The cystic duct was controlled proximal to the previous created ductotomy with 3 hemoclips. The cystic duct was now divided. There was no evidence of any bile leakage from the cystic duct stump. The gallbladder
was now retracted off of its posterior liver bed attachments. The previous visualized posterior cystic artery was further isolated and controlled with 2 clips proximally and 1 clip on an additional branch from the posterior artery as well. The
gallbladder was now dissected free from its remaining liver bed attachments with monopolar cautery intact and placed within a specimen retrieval bag.
The surgical field inspected. Meticulous hemostasis was assured. There was no evidence of any bile staining or leakage. There is no evidence of bleeding. The right upper quadrant was locally irrigated with sterile saline with clear return. The
patient was now returned to neutral position. The gallbladder was extracted at the epigastric port site with slight dilation of the fascia. The 12 mm trocar site was now closed with 2 simple interrupted 0 Vicryl sutures placed utilizing an Endo
Close device. The remaining air was evacuated out of the abdominal cavity. The 5 mm trocar sites were now removed. Skin was closed at all of the surgical sites with buried interrupted 4-0 Monocryl. Sterile surgical glue dressings were applied.
The patient tolerated the procedure well and was transferred to the recovery unit for routine postoperative monitoring.
I was present for the entirety of the operative procedure.
--- NOTE | 2024-11-03 16:40 | PTCARENOTE ---
pt transferred from PACU AOx3 denies pain. LCTA B/L regular heart sounds. VS WNL. CLD, abd soft NT with lap sites all well approximated and glued. skin is otherwise intact. No edema +Pp B/L. D/C IVF per attending. CB in reach, spouse at bedside.
[2024-11-03] MEDS: TORADOL 10 MG IV (23:03)
[2024-11-04 01:35] LABS: Glucose - Point of Care 127 mg/dl (70-99)
[2024-11-04 03:30] VITALS: BP 127/80
[2024-11-04] MEDS: FLAGYL 500 MG 100 IV (03:36)
[2024-11-04] MEDS: TORADOL 10 MG IV (04:52)
--- NOTE | 2024-11-04 06:00 | W.PN.GI.CBS2 ---
Today's Communication / Plan
-
Improving clinically from prior pancreatitis with near resolution of symptoms. S/p recent lap giselle on 11/03/24 with general surgery and (-) IOC. Agree with antibiotics as per ID and ongoing discharge planning as per surgery and primary team. GI
will sign-off. Please call back with any questions/concerns.
Assessment / Plan
-
#Gallstone Pancreatitis c/b
#E coli Bacteremia
This is a 59 y.o female with biliary pancreatitis further complicated by E coli bacteremia (felt to be transient bacteremia from cholangitis and passed stone) now s/p lap giselle on 11/03/24 with normal IOC. No other history of EtOH and nml
triglyceride levels. No other complications regarding her pancreatitis and continuing to improve with near resolution of her symptoms after recent lap giselle now POD #1.
Recommendations:
- Tolerating CLD without difficulty. May stop IVF if continuing to tolerate oral intake
- Advance diet as per surgery to low-fat as tolerated
- LFTs trending down, f/u repeat AM labs. Further, IOC (-) for any retained sludge/stone
- On antibiotics as per ID
- Pain control and anti-emetics PRN
- Surgery following, appreciate recs
- May follow-up with GI as needed after discharge
- Rest of care per primary team
Discussed with primary internal medicine team this AM. GI team will sign-off. Please call back with any questions or concerns.
Subjective
Subjective
Date of Service: November 04, 2024
- S/p lap giselle w/ general surgery on 11/03/24 with normal IOC
- Otherwise, no acute events overnight ; prior LFTs down-trending, repeat AM labs pending
Feeling well this morning, notes much improved abdominal pain and only minimal tenderness near surgical incisions. Otherwise, no nausea/vomiting, fevers/chills or other constitutional symptoms. States her previous abdominal pain from her
pancreatitis has completely resolved. Tolerating CLD without difficulty.
Objective
Data Reviewed
Laboratory Data:
Laboratory Results
Total Bilirubin 0.4 mg/dl (0.2-1.3) 11/03/24 07:03
AST 61 U/L (14-36) H 11/03/24 07:03
ALT 192 U/L (0-35) H 11/03/24 07:03
Alkaline Phosphatase 142 U/L (38-126) H 11/03/24 07:03
Lipase 2155 U/L (23-300) H* 11/03/24 07:03
Vital Signs and I&O:
Vital Signs
Temp Pulse Resp BP Pulse Ox
97.8 F 76 18 127/80 96
11/04/24 03:30 11/04/24 03:30 11/04/24 03:30 11/04/24 03:30 11/04/24 03:30
I&O
11/02/24 11/03/24 11/04/24
06:59 06:59 06:59
Intake Total 1482 / 1482 4730 / 4730 730 / 730
Balance 1482 / 1482 4730 / 4730 730 / 730
Physical Exam
Physical Exam
HEENT: Anicteric and Moist mucous membranes
Cardiology: Normal Sinus Rhythm
Pulmonary: Other (Normal WOB on room air)
GI: Soft, Non Distended, Non Tender and Other (Minimal tenderness near incision sites, well-healed, c/d/i with glue)
Extremities: No Edema
Neuro: Non Focal
[2024-11-04 06:56] LABS: Glucose - Point of Care 102 mg/dl (70-99)
[2024-11-04 07:30] VITALS: BP 146/81
--- NOTE | 2024-11-04 08:03 | W.PN.GS2 ---
Addendum entered and electronically signed by Alex Marr MD 11/04/24 08:17:
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 Agree with documented progress note.
Patient states that she is doing well postoperatively with minimal incisional discomfort.
Previous acute pancreatitis abdominal pain and symptoms have completely resolved.
AFVSS
NAD AAOx3
ABD: Soft, nondistended, minimal incisional tenderness. Incisions with glue dressings. No open wounds, no drainage, no ecchymosis.
A/P: POD #1 status post lap giselle with IOC -presenting with gallstone pancreatitis/E. coli bacteremia
Clinically resolving pancreatitis and doing well postop
Stable for discharge from surgical standpoint
Antibiotics as per hospitalist/ID recommendations
Original Note:
Today's Communication / Plan
-
Advance diet
Dispo planning
Assessment / Plan
-
Assessment: 59-year-old female with acute pancreatitis/cholangitis -gallstone mediated with bacteremia (e.coli). POD #1 lap giselle with normal IOC
AFVSS
Clinically improving
Following expected post operative course
Labs pending for today
Plan:
ABX as per ID
Advance to Low fat diet
OOB ambulate
Transition to PO analgesics
Clear for discharge from surgical standpoint once tolerating diet
Subjective Data
-
Date of Service: November 04, 2024
Patient seen and examined at bedside with Dr. Marr. Denies n/v. Tolerating clears. Pain much improved from prior to surgery. Some incisional soreness. Some soreness to IV site on left arm but notes this is improved as well.
Objective Data
-
Intake and Output
11/03/24 11/04/24 11/05/24
06:59 06:59 06:59
Intake Total 4730 / 4730 730 / 730
Balance 4730 / 4730 730 / 730
Intake:
Oral fluids 1020 / 1020 480 / 480
IV fluids (Total) 3400 / 3400 50 / 50
Normosol 50 / 50
IV piggybacks 310 / 310 200 / 200
Other:
Number of approximated MODERATE 3 1
amounts of urine
Vital Signs
Temp Pulse Resp BP Pulse Ox
97.8 F 76 18 127/80 96
11/04/24 03:30 11/04/24 03:30 11/04/24 03:30 11/04/24 03:30 11/04/24 03:30
Calcium 9.0 mg/dl (8.4-10.2) 11/03/24 07:03
Total Bilirubin 0.4 mg/dl (0.2-1.3) 11/03/24 07:03
AST 61 U/L (14-36) H 11/03/24 07:03
ALT 192 U/L (0-35) H 11/03/24 07:03
Alkaline Phosphatase 142 U/L (38-126) H 11/03/24 07:03
Total Protein 5.9 g/dl (6.3-8.2) L 11/03/24 07:03
Albumin 3.5 g/dl (3.5-5.0) 11/03/24 07:03
Physical Exam
-
NAD AAOx3
ABD: Soft, nondistended, mild tenderness at incisions. No rebound, no rigidity, no guarding
Incisions well approximated without erythema, intact glue
Thrombophlebitis to left antecubital region with mild edema
[2024-11-04 08:17] LABS: Hemoglobin 11.6 g/dL (12.0-16.0); Mean Corp Hgb Conc. 33.1 g/dL (33.0-37.0); Mean Corpuscular Hgb 28.1 pg (27.0-31.0); Mean Corpuscular Volume 84.7 fL (81.0-99.0); Mean Platelet Volume 10.8 fL (7.4-10.4); Platelet Count 286 10^3/uL (130-400); Red Blood Cell Count 4.13 10^6/uL (4.20-5.40); Red Cell Dist. Width 13.7 % (11.5-14.5); White Blood Cell Count 9.2 10^3/uL (4.8-10.8)
[2024-11-04] MEDS: NSS (PRESERVATIVE FREE) 10 ML IV (08:20)
[2024-11-04] MEDS: PROTONIX IV 40 MG IV (08:20)
[2024-11-04] MEDS: FLUSH (NSS) 2 FLUSH IV (08:22)
[2024-11-04 08:49] LABS: ALT (SGPT) 144 U/L (0-35); AST (SGOT) 37 U/L (14-36); Albumin 3.5 g/dl (3.5-5.0); Alkaline Phosphatase 138 U/L (38-126); Blood Urea Nitrogen 8 mg/dl (7-17); Calcium 8.9 mg/dl (8.4-10.2); Carbon Dioxide 26 mmol/L (22-30); Chloride 102 mmol/L (98-107); Estimated Creatinine Clearance 101 ml/min; Glucose 101 mg/dl (70-99); Lipase 395 U/L (23-300); Potassium 3.6 mmol/L (3.5-5.1); Sodium 137 mmol/L (135-145); Total Bilirubin 0.3 mg/dl (0.2-1.3); Total Protein 6.1 g/dl (6.3-8.2); eGFR > 60.00
--- NOTE | 2024-11-04 09:51 | W.PN.ID1 ---
Date of Service
Date of Service: November 04, 2024
Today's Communication
Narrow to amoxicillin.
Assessment / Plan
Acute pancreatitis
Cholelithiasis
E. coli bacteremia
Leukocytosis; improved
Fever
Recommendations:
Patient is status post cholecystectomy.
E. coli sensitivities show the isolate is pansensitive.
Narrow to oral amoxicillin 500 mg 3 times daily for an additional 10 days.
Chief Complaint
-: Bacteremia
Subjective / Review of Systems
Patient seen and examined. Denies fevers or chills. Minimal abdominal discomfort.
Vital Signs / Physical Exam
Vital Signs
Vital Signs
Temp Pulse Resp BP Pulse Ox
98.2 F 72 16 146/81 97
11/04/24 07:30 11/04/24 07:30 11/04/24 07:30 11/04/24 07:30 11/04/24 07:30
Physical Exam
Constitutional: No Acute Distress, Comfortable and Non-toxic
Pulmonary: Non Labored
Gastrointestinal: Distended, Normal Bowel Sounds, No Rebound and Other (Trocar incisional wounds intact. No periwound erythema.)
Neurological: Awake and Alert
Psychological: Calm
Objective Data
Lab Data
Lab Results
11/04/24 07:29
11/04/24 07:29
Estimated Creat Clear 101 ml/min 11/04/24 07:29
Total Bilirubin 0.3 mg/dl (0.2-1.3) 11/04/24 07:29
AST 37 U/L (14-36) H 11/04/24 07:29
ALT 144 U/L (0-35) H 11/04/24 07:29
Alkaline Phosphatase 138 U/L (38-126) H 11/04/24 07:29
Most recent labs reviewed.
Micro Results:
11/01/24 11:16 Blood Culture - Final
Blood/Venous Escherichia coli
Gram Stain - Final
11/01/24 11:53 Blood Culture - Preliminary
Blood/Venous No Growth in 48 hours- Final report to follow
Imaging:
11/01/2024 MRCP: Mild peripancreatic edema consistent with known acute pancreatitis. The common bile duct is mildly dilated measuring 1.0 cm with distal tapering. There is no evidence of choledocholithiasis. There is a 2.0 x 1.5 cm periampullary
duodenal diverticulum extending posteriorly. Cholelithiasis.
10/31/2024 Abdominal ultrasound: Cholelithiasis noted. No secondary findings to suggest acute cholecystitis by ultrasound. There is dilation of the common bile duct, measuring up to 9.6 mm. No sonographic evidence for bile duct calculus. Further
evaluation with MRI or MRCP may be considered.
Care Review
Plan reviewed with: Physician (Hospitalist; General Surgery)
--- NOTE | 2024-11-04 10:09 | CM ---
CM reviewed chart, patient seen bedside with family. Patient reports she is feeling much better, is eager to eat. Patient denies any needs from CM upon discharge. CM will continue to follow for all discharge planning needs.
Plan; home with family, no needs.
--- NOTE | 2024-11-04 10:39 | W.PN.HOSP.TC ---
Addendum entered and electronically signed by Tasha Jonas MD 11/04/24 11:12:
Left cephalic vein DVT is a valid diagnosis
Original Note:
Today's Communication/Plan
-
dc home
Assessment / Plan
Assessment / Plan
Assessment:
Abdominal pain secondary to pancreatitis likely secondary to gallstones
Ultrasound suggestive of Cholelithiasis however no evidence of acute cholecystitis. There is dilation of CBD. MRI With acute pancreatitis. CBD is mildly dilated. No evidence of choledocholithiasis. Periampullary duodenal diverticulum extending
posteriorly.
Lipase improved
s/p lap giselle with negative IOC 11/03
DC home with GS f/u
for E. Coli bacteremia - dc on Amoxil 500mg TID x 10 further days
Hypoglycemia
Monitor, Accu-Cheks. Dextrose.
DVT ppx: SCDs
Code: Full
More than 30 minutes spent in discharge including
Final examination of the patient
Summarizing hospital stay
Instructions for continuing care to all relevant caregivers
Preparation of discharge records, prescriptions, and referral forms
Total time spent (in minutes): 41
Anticipated Discharge: Today
Subjective/Interval History
-
Date of Service: November 04, 2024
denies any new complaints
tolerating LFD
Objective Data
-
Labs:
Laboratory Results
11/04/24
07:29
WBC 9.2
Hgb 11.6 L
Hct 35.0 L
Plt Count 286 D
Sodium 137
Potassium 3.6
Chloride 102
Carbon Dioxide 26
BUN 8
Creatinine 0.6
Glucose 101 H
Calcium 8.9
Total Bilirubin 0.3
AST 37 H
ALT 144 H
Alkaline Phosphatase 138 H
Vital Signs:
Vital Signs
Temp Pulse Resp BP Pulse Ox
98.2 F 72 16 146/81 97
11/04/24 07:30 11/04/24 07:30 11/04/24 07:30 11/04/24 07:30 11/04/24 07:30
I&O
11/03/24 11/04/24 11/05/24
06:59 06:59 06:59
Intake Total 4730 / 4730 730 / 730
Balance 4730 / 4730 730 / 730
Physical Exam
-
General: No Apparent Distress
HEENT: Normocephalic and Atraumatic
Respiratory: Negative Wheezes
Cardiac: Regular Rhythm and S1/S2
GI: Soft
Genito-urinary: No Costovertebral Tender
Musculoskeletal: No Edema
Neuro: AO x 3
Hematologic / Lymphatic: No Lymphadenopathy
Psych: Calm
Data Reviewed
-
Total Time Spent with Patient (in minutes): 42
Labs: Labs Reviewed by me
--- NOTE | 2024-11-04 10:42 | W.DS.TRANS ---
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
-
Discharge Instructions:
Discharge Diagnosis/Procedures Gallstone mediated pancreatitis. Laparoscopic
cholecystectomy with cholangiogram 11/03
Diet As tolerated,Low Fat
Additional Diets Smaller meals initially after surgery as
abdominal bloating and distention are common for
the first few days postoperatively
Activity No strenuous activity
Additional Activity No lifting over 20 pounds for 3 to 4 weeks
postop.
Driving Restrictions No driving 2 to 3 days or if using narcotics
Bathing Restrictions OK to Shower
Wound Care Glue at surgical sites typically peels off in 2
to 3 weeks
Instructions:
Stand-Alone Forms:
Changes to Home Medications: No
Discharge Medications:
DC Medications w/original date entered in [facility]
acetaminophen 325 mg tablet 650 mg (2 x 325 mg) PO Q4HPRN PRN MILD pain or temp>100.4 #100 tabs 11/04/24
amoxicillin 500 mg capsule 500 mg PO Q8 #30 caps 11/04/24
Home Medication Changes
Pending Results: No
Total time spent discharging patient (in min): 41
--- NOTE | 2024-11-04 10:46 | PN.CDI ---
CDI
- -
CDI:
Physician Documentation Request
Admit Date: 10/31/24 23:10
Dear Doctor Pritesh,
Please review the following and provide your response in the progress notes.
Clinical Indicators:
11/03 Exams: US Periph Venous UPPER Ext Lt
#CLINICAL INDICATION: Left upper extremity pain, swelling, and edema. Venous thrombosis.
#FINDINGS:
#...Occlusive thrombus is present in the mid to distal cephalic vein in
#...the proximal arm, extending to the antecubital fossa.
#IMPRESSION:
#...Cephalic vein occlusive thrombus.
Based on the above and your clinical assessment, please indicate in the progress notes if you are in agreement that the above diagnosis is valid for this patient:
Left cephalic vein DVT is a valid diagnosis (Please include it in your progress notes)
Left cephalic vein DVT is not a valid diagnosis for this patient
Other (please specify)
Use of terms such as suspected, likely, concern for, or probable are acceptable for a diagnosis that is being evaluated, monitored or treated as if it exists and can be coded in the inpatient setting, when documented at the time of discharge.
Thank you,
Cheri Campbell RN BSN CCDS
CDI Specialist
please contact via tiger text
Please use your independent medical judgment in providing your response.
[2024-11-04] MEDS: AMOXIL 500 MG PO (11:14)
[2024-11-04 11:41] VITALS: BP 116/65
== END 2024-11-04 12:03 | disposition home or self-care (01) | DRG 853 ==
LOC: 2 SOUTH 23:10
PROVIDERS: Emergency Medicine; Internal Medicine; Radiology Vascular & Interventional Radiology; Registered Nurse; Surgery; ADMITTING PHYSICIAN Internal Medicine; ATTENDING PHYSICIAN Internal Medicine; CONSULT PHYSICIAN Internal Medicine Gastroenterology; CONSULT PHYSICIAN Surgery; EMERGENCY PHYSICIAN Emergency Medicine; FAMILY PHYSICIAN Family Medicine; OTHER PHYSICIAN Internal Medicine Infectious Disease
PROC: 0FT44ZZ Resection of Gallbladder, Percutaneous Endoscopic Approach (ICD-10-PCS; 2024-11-03)
PROC: BF131ZZ Fluoroscopy of Gallbladder and Bile Ducts using Low Osmolar Contrast (ICD-10-PCS; 2024-11-03)
DX: A41.9 Sepsis, unspecified organism (principal); K85.10 Biliary acute pancreatitis without necrosis or infection; K80.00 Calculus of gallbladder with acute cholecystitis without obstruction; I82.622 Acute embolism and thrombosis of deep veins of left upper extremity; R74.01 Elevation of levels of liver transaminase levels; M19.90 Unspecified osteoarthritis, unspecified site; B96.20 Unspecified Escherichia coli [E. coli] as the cause of diseases classified elsewhere; E16.2 Hypoglycemia, unspecified; K57.10 Diverticulosis of small intestine without perforation or abscess without bleeding
CPT/HCPCS: 88304; 74181; 74300; 76000; 76700; 80053; 80061; 81003; 81015; 82962; 83690; 85025; 85027; 87040; 87149; 87186; 87205; 93005; 93971; 96361; 96374; 96375; 99285; A4300

== ENCOUNTER 2025-08-02 06:21 | Day surgery (SDC) | payer BC, SELFPAY | END 2025-08-02 08:49 | disposition home or self-care (01) | LOC: GI 06:21 | PROVIDERS: ATTENDING PHYSICIAN Internal Medicine Gastroenterology | DX: Z12.11 Encounter for screening for malignant neoplasm of colon (principal); D12.2 Benign neoplasm of ascending colon; K57.30 Diverticulosis of large intestine without perforation or abscess without bleeding; K64.8 Other hemorrhoids | CPT/HCPCS: 45385; 88305 ==